=== PATIENT | female | born 1955 | race Caucasian/White ===

== ENCOUNTER 2016-12-19 00:41 | Inpatient (IN) | payer OTHER ==
[~2016-12-19] VITALS: Ht 160 cm; Wt 56.0 kg
--- NOTE | ~2016-12-19 | PR ---
[place], [place] PROGRESS NOTE NAME: MARIA ESTHER MACARIO UNIT #: [id number] ROOM: 312 DOCTOR: DOREEN SAM BIRTHDATE: [birth year] DOS: 12/21/2016 CHIEF COMPLAINT: "Good morning." SUMMARY OF VISIT: The patient was assessed in the hallway where she engaged readily in conversation. Nursing notes that she had a very good night. No behaviors and has not required any redirection has been compliant with her medications. MENTAL STATUS: She is alert and oriented to person, place, and I think approximate to time. Mood definitely trending to be euthymic. Affect is appropriate. There are no overt signs of auditory or visual hallucinations, delusions, paranoia, frederick, or hypomania. There are some short term memory gaps noted. PLAN: I am going to continue on the current psychotropics that she is on it appears that the medications that we started on her and titrated up are being affected and she is actually clearing. Dr. Mtz rounded on her yesterday and his notes had stated that If she did not clear mentally that we may have to look at an emergency guardianship however, the patient does appear to be clearing, is responding to the medication and doing quite well. We will continue to try to figure out what her situation is, if she is truly homeless, that she is living out at hotel etc. Long-term goal is if she continues to clear, no reason that she cannot be discharged in stable condition. LIAT SAM CNP CM:PNTRANS [id number] DOREEN SAM 12/21/16 1020 interface
--- NOTE | ~2016-12-19 | DS ---
[place], [place] DISCHARGE SUMMARY NAME: MARIA ESTHER MACARIO UNIT #: [id number] ROOM: 312 DOCTOR: DOREEN SAM BIRTHDATE: [birth year] DOS: 12/23/2016 HISTORY OF PRESENT ILLNESS: A 61-year-old female sent here on an involuntary basis by the [place] [employer] who took her to [facility]. She was feeling ____ [employer]. When they called, they found her grossly psychotic, delusional with flights of ideas and extreme confusion. The patient avoided answering questions and was very evasive. She has a lengthy psychiatric history and most recently seen by a doctor and nurse practitioner at [facility]. She is a very poor historian, could not tell what medication she had previously been on or should be on. She was admitted to rule out organic factors and stabilize her on her medications. PAST MEDICAL HISTORY: Limited due to her being a poor historian and apparently homeless, COPD, and hypothyroidism. DIAGNOSIS: Bipolar axis I, manic with psychotic features. HOSPITAL COURSE: We started her on Invega and then increased it up to 6 mg q.a.m. to help break some of her psychosis. She was also found to be vitamin D deficient. We started her on 50,000 International Units q. week and was given trazodone 100 mg at night to help with sleep. It appears also that she does get Haldol decanoate shot once a month, which was not due during her stay. After a couple of days, the patient's psychosis did clear. She was more redirectable. No behaviors. MENTAL STATUS: She is alert and oriented to person, place, approximate time. There are still some memory gaps. Mood definitely euthymic. Affect is more appropriate. No overt signs of auditory or visual hallucinations, delusions or paranoia, frederick or hypomania. PLAN: Apparently, the patient has been living at a hotel for several weeks or months. This is where her stuff is and what she considers to be home. The patient will be discharged there in stable condition. We will be sending her with scripts and then to follow up with her doctor and nurse practitioner at [facility]. [place], [place] DISCHARGE SUMMARY NAME: MARIA ESTHER MACARIO UNIT #: [id number] ROOM: [facility] DOCTOR: DOREEN SAM BIRTHDATE: [birth year] LIAT SAM CNP CM:MARIALUISA DOREEN SAM 12/23/16 0840 interface
--- NOTE | ~2016-12-19 | PR ---
[place], [place] PROGRESS NOTE NAME: MARIA ESTHER MACARIO UNIT #: [id number] ROOM: 312 DOCTOR: DOREEN SAM BIRTHDATE: [birth year] DOS: 12/22/2016 CHIEF COMPLAINT: "Good morning." SUMMARY OF VISIT: The patient was assessed in the dining room, where she was eating breakfast, engaged readily in conversation. A little bit bizarre at times talking about her thyroid, Synthroid. It was trouble finding her words. I finally realized what she was saying was that she does not take Synthroid, but the generic, but she did not know the word for generic and that she felt our medication was wrong, so I explained the difference between name, brand, and generic and that I will be happy when we discharge her to give her the generic if she is okay with that. She seemed to calm down. MENTAL STATUS: She is alert and oriented to person, place, approximate time. Mood is definitely trending towards euthymic. Affect was appropriate. No overt signs of auditory or visual hallucinations, delusions, paranoia, frederick, or hypomania. There are some short term memory deficits and memory gaps noted. PLAN: Continue with the current psychotropics. We will continue to try to engage in individual and harris milieu therapy. She is clearing and improving on her current regimen. LIAT SAM CNP CM:PNYOKO [id number] DOREEN SAM 12/22/16 1009 interface
--- NOTE | ~2016-12-19 | CON ---
[place], [place] REPORT OF CONSULTATION NAME: MARIA ESTHER MACARIO UNIT #: [id number] ROOM: 312 DOCTOR: PATRICIA LAKE ED.D (BRANDON) BIRTHDATE: [birth year] DOS: 12/20/2016 HISTORY OF PRESENT ILLNESS: The patient is a 61-year-old female referred by Dr. Steiner for competency evaluation. At the present time, she is on the [facility]. She states she is and has no children. She had been living in [place], [place], but she is not actually certain of where she was living. She stated she was living at the [facility], but that is not the case and she was found there by the police stealing items. She was then sent to [facility] where she was pink slipped to [facility]. 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 She did not know her family physician and named her psychiatrist as opposed to her family physician, so she is not actually certain of her family physician. Her medical history is pertinent for bipolar disorder and vitamin D deficiency. She denied any substance abuse issues. This patient was awake, alert and oriented to person, place and time. She could not tell me her age. She stated she was 59, and then she stated she was 65 and she is actually 61. Otherwise, she did fairly well. She states she has had auditory hallucinations in the past. She was quite delirious at this time. She had significant flight of ideas. She states she did have a guardian at one point in time through [employer]. She also states [employer] stole her money, which is highly unlikely. In my opinion, if she does not improve, guardianship should be reestablished. DIAGNOSIS: Bipolar 1 - manic with psychotic features. RECOMMENDATIONS: If her condition does not improve, an emergency guardianship should be filed at [facility] court. Thank you very much for this consult. PATRICIA LAKE ED.D CM:CONSTR:REPORT OF CONSULTATION 1140 12/20/16 1216 interface RIVERA STEINER MD
--- NOTE | ~2016-12-19 | WRIGHTHP ---
[place], [place] PATIENT HISTORY AND PHYSICAL EXAM NAME: MARIA ESTHER MACARIO UNIT #: [id number] ROOM: 312 DOCTOR: RIVERA ZAMORA MD BIRTHDATE: [birth year] DOS: 12/19/2016 CHIEF COMPLAINT: "I just wasn't feeling good. I need to be in the hospital." HISTORY OF PRESENT ILLNESS: This is a 61-year-old white female who was sent here on an involuntary basis. The patient was sent here by [place] [employer] who brought her to [facility]. The patient apparently had been stealing items at the [employer]. When called, they found her to be grossly psychotic and delusional with flight of ideas and extreme confusion. The patient avoided answering direct questions and was somewhat evasive. The patient does admit to a lengthy psychiatric history and had seen ____ for sometime and most recently has been seen by the nurse practitioner at [facility]. She is a poor historian, however, and could not totally tell me what medication she most recently has been prescribed. She is admitted now to rule out organic factors to attempt to stabilize on medication with the plan to return back to the [facility] when stable. PAST MEDICAL HISTORY: Limited due to the fact that the patient is a poor historian. However, she does have a history of COPD and hypothyroidism. MENTAL STATUS: The patient is alert and oriented to person, place, and approximate to time. Mood does seem to be rather labile and she shifts from topic to topic. Her answers at times are totally inappropriate. She does have somewhat a flight of ideas and often derails in the middle of conversation. There are no gross auditory or visual hallucinations noted. No direct delusions or paranoia. Short-term memory has gaps. DIAGNOSIS: Bipolar type 1, manic with psychotic features. PLAN: At this point in time, the patient has been started on Invega 3 mg in the morning. Given the level of her symptomatology, I will increase this to 6 mg in the morning. Routine screening examinations revealed her to be low in vitamin D. So, we will start vitamin D replacement at 50,000 International Units weekly. The patient was also given trazodone 100 mg at night, which she reports did help her sleep. We will engage her in individual and harris milieu activity with the ultimate plan to return back to the [facility] and have followup at [facility] when stable. [place], [place] PATIENT HISTORY AND PHYSICAL EXAM NAME: MARIA ESTHER MACARIO UNIT #: [id number] ROOM: [facility] DOCTOR: RIVERA ZAMORA MD BIRTHDATE: [birth year] RIVERA ZAMORA MD CM:HISPHYS:PATIENT HISTORY AND PHYSICAL EXAMINATION 3 6 RIVERA ZAMORA MD 12/19/1638 interface
[2016-12-19] MEDS ORDERED: VENTOLIN 02.5 MG/3 M INH (01:19)
[2016-12-19] MEDS ORDERED: DEPAKOTE250 MG PO (01:20)
[2016-12-19] MEDS ORDERED: LEVOTHYROXINE0.05 MG PO (01:20)
[2016-12-19] MEDS ORDERED: ZOLOFT100 MG PO (01:25)
[2016-12-19] MEDS ORDERED: COGENTIN0.5 MG PO (01:26)
[2016-12-19] MEDS ORDERED: HALDOL DEC50 MG/1 ML IM (01:27)
[2016-12-19 07:09] LABS: CHOLESTEROL 219 mg/dL (<200); HDL CHOLESTEROL 48 mg/dl (40-60); HEMOGLOBIN A1c 5.4 % (4.8-5.6); LDL CHOLESTEROL 143 mg/dL (9-159); TRIGLYCERIDES 139 mg/dl (<150); VLDL CHOLESTEROL 28 mg/dL (6-40)
[2016-12-19 07:20] LABS: FOLIC ACID 15.82 ng/mL (>5.38); VITAMIN D, 25-HYDROXY 9.4 ng/mL (30-100)
[2016-12-20 07:41] LABS: BASO # 0.1 10*3/uL (0.0-0.1); BASO % 0.8 % (0.0-1.0); EOS # 0.2 10*3/uL (0.0-0.4); EOS % 2.8 % (1.0-4.0); HEMATOCRIT 41.9 % (37.0-47.0); LYMPH # 2.6 10*3/uL (1.3-4.4); LYMPH % 42.6 % (27.0-41.0); MEAN CELL VOLUME 88.6 fl (81.0-99.0); MEAN CORPUSCULAR HGB 29.6 pg (27.0-31.0); MEAN CORPUSCULAR HGB CONC 33.4 g/dl (33.0-37.0); MEAN PLATELET VOLUME 11.1 fl (9.6-12.3); MONO # 0.7 10*3/uL (0.1-1.0); MONO % 10.9 % (3.0-9.0); NEUT # 2.5 10*3/uL (2.3-7.9); NEUT % 42.6 % (47.0-73.0); PLATELET COUNT AUTOMATED 267 10*3/uL (130-400); RED BLOOD COUNT 4.73 10*6/uL (4.10-5.10); RED CELL DISTRI WIDTH 14.2 % (0-14.5)
[2016-12-20 08:09] LABS: BUN 12 mg/dl (7-24); CARBON DIOXIDE 23 mmol/L (21-32); CHLORIDE 110 mmol/L (98-107); EST GLOM FILT AFRICAN AMERICAN > 60 ml/min; FREE T4 0.97 ng/dl (0.76-1.46); GLUCOSE 89 mg/dL (65-99); POTASSIUM 3.4 mmol/L (3.5-5.1); SODIUM 144 mmol/L (136-145)
[2016-12-20 15:35] LABS: BILIRUBIN NEGATIVE (NEGATIVE); BLOOD NEGATIVE (NEGATIVE); CLARITY CLOUDY (CLEAR); COLOR YELLOW (YELLOW); GLUCOSE NEGATIVE (NEGATIVE); KETONE NEGATIVE (NEGATIVE); LEUKO ESTERASE NEGATIVE (NEGATIVE); NITRITE NEGATIVE (NEGATIVE); PROTEIN NEGATIVE (NEGATIVE)
[2016-12-20 15:56] LABS: BACTERIA 3+; RBC 0-2 rbc/hpf (0-2); URINE REFLEX COMMENT YES (NO)
[2016-12-23] MEDS ORDERED: TRAZADONE HYDR100 MG PO (08:23)
[2016-12-23] MEDS ORDERED: VITAMIN D50000 I3 PO (08:23)
[2016-12-23] MEDS ORDERED: INVEGA6 MG PO (08:23)
== END 2016-12-23 15:35 | disposition other institution (70) | DRG 885 ==
LOC: 3N 00:41
PROVIDERS: Hospitalist; Nurse Practitioner Adult Health; Psychiatry & Neurology Psychiatry
DX: F31.2 Bipolar disorder, current episode manic severe with psychotic features (principal); E55.9 Vitamin D deficiency, unspecified; J44.9 Chronic obstructive pulmonary disease, unspecified; E03.9 Hypothyroidism, unspecified; E78.00 Pure hypercholesterolemia, unspecified; Z87.891 Personal history of nicotine dependence; Z80.1 Family history of malignant neoplasm of trachea, bronchus and lung; Z79.51 Long term (current) use of inhaled steroids; Z59.0 Homelessness; Z79.899 Other long term (current) drug therapy